=== PATIENT | male | born 1950 | race Caucasian/White ===

== ENCOUNTER → 2017-05-10 | Outpatient (CLI) | payer BC ==
--- NOTE | 2017-05-10 11:29 | RAD ---
Examination: Ultrasound left neck History: History of enlarged lymph node left neck. Comparison: None available Findings: There is a abnormal appearing hypoechogenicity identified in the left neck measuring 3.2 x 2.6 x 2.7 cm probably an abnormal appearing lymph node. Impression: 1. Abnormal appearing hypoechogenicity measuring 3.2 cm identified in the left neck probably abnormal appearing lymph node. Consider follow-up CT soft tissue neck with IV contrast if clinically feasible.
== END | disposition home or self-care (01) ==
LOC: DXRAD 10:00
PROVIDERS: ATTEND Physician Assistant
DX: E03.9 Hypothyroidism, unspecified (principal); R59.0 Localized enlarged lymph nodes
CPT/HCPCS: 76536

== ENCOUNTER → 2017-05-21 | Outpatient (CLI) | payer BC ==
[~2017-05-21] MED LIST: IOHEXOL 300 MG/ML 75 ML VIAL. IV ONE
--- NOTE | 2017-05-21 12:33 | RAD ---
Indication: Abnormal ultrasound. Technique: Axial images and coronal and sagittal reformatted images are provided. 75 mL of intravenous Omnipaque 300 was administered without complication. Ultrasound from May 10, 2017 was reviewed in comparison. One or more of the following individualized dose reduction techniques were utilized for this examination: 1. Automated exposure control 2. Adjustment of the mA and/or kV according to patient size 3. Use of iterative reconstruction technique Findings: An enlarged lymph node on the left is rounded and measures up to 3.0 cm. It is posterior to the submandibular gland. There are additional mildly prominent lymph nodes on the left, for example a level 4 lymph node measuring 11 x 8 mm. Subcentimeter short axis lymph nodes are noted on the right. Streak artifact from right shoulder hardware limits evaluation for supraclavicular adenopathy. There is mild pansinus mucosal thickening. Mastoid air cells are clear. Included orbital contents are unremarkable. There is no airway narrowing. Internal carotid arteries take a retropharyngeal course. There is question of some soft tissue thickening in the left posterior wall of the supraglottic larynx. Lung apices are clear. There are mild degenerative changes in the spine. Impression: 1. Pathologically enlarged lymph node on the left would be amenable to ultrasound-guided percutaneous sampling. 2. Possible left posterior wall supraglottic larynx lesion or thickening. Depending on the results of lymph node biopsy, direct visualization may be of benefit.
== END | disposition home or self-care (01) ==
LOC: CT 11:23
PROVIDERS: ATTEND Physician Assistant
DX: R59.0 Localized enlarged lymph nodes (principal); M47.892 Other spondylosis, cervical region; K21.9 Gastro-esophageal reflux disease without esophagitis; I10 Essential (primary) hypertension
CPT/HCPCS: 70491; Q9967

== ENCOUNTER → 2019-09-05 | Outpatient (CLI) | payer MEDICARE ==
--- NOTE | 2019-09-05 08:28 | RAD ---
Chest, PA and Lateral: Technique: PA and lateral views of the chest were obtained. History: Cough for 2 weeks. Comparison: None. Findings: The heart and pulmonary vasculature appear within normal limits. The lungs are clear. The pleural margins are clear. Calcified granuloma identified in the left upper lobe of the lung. Moderate degenerative changes thoracic spine. Impression: No acute chest process is seen. Electronically signed by: Woodrow Kruse MD (09/05/2019 8:25 AM) [id number]
== END | disposition home or self-care (01) ==
LOC: RAD 08:02
PROVIDERS: ATTEND Family Medicine
DX: R06.03 Acute respiratory distress (principal); M47.814 Spondylosis without myelopathy or radiculopathy, thoracic region; J84.10 Pulmonary fibrosis, unspecified; Z87.01 Personal history of pneumonia (recurrent)
CPT/HCPCS: 71046

== ENCOUNTER → 2021-10-02 | Outpatient (CLI) | payer MEDICARE ==
[2021-10-02 11:41] LABS: ALBUMIN 3.5 g/dL (3.4-5.0); DIRECT BILIRUBIN 0.1 mg/dL (0.0-0.2); TOTAL BILIRUBIN 0.3 mg/dL (0.2-1.0); TOTAL PROTEIN 6.3 g/dL (6.4-8.2)
[2021-10-04 19:07] LABS: HCV ULTRA QUANT PCR HCV Not Detected IU/mL (.)
== END ==
LOC: LAB 10:13
PROVIDERS: ATTEND Internal Medicine Gastroenterology
DX: B19.20 Unspecified viral hepatitis C without hepatic coma (principal)
CPT/HCPCS: 36415; 80076; 87522